=== PATIENT | female | born 1990 | race American Indian/Alaskan Native ===

== ENCOUNTER 2018-11-23 07:08 | Emergency (ER) | payer OTHER ==
--- NOTE | 2018-11-23 08:30 | Emergency Department Report ---
HPI - General Chief Complaint: Rectal Pain Time Seen by Provider: 11/23/18 08:13 - HPI HPI: 27-year-old female presents to the emergency department with a complaint of some rectal pain with some type of lump or lesion. She says that the pain started about one week ago and then she started to feel some type of localized area of discomfort about 3-4 days ago. She says that she feels like it is "under the skin." She has tried bathing in Epsom salt, using a salve, some type of pain numbing spray, and multiple other [id number] medications without any relief. She otherwise denies any past medical history. She is able to have bowel movements but it is painful to do so. ED Past Medical Hx - Social History Smoking Status: Never Smoker Substance Use Type: None - Medications Home Medications: Home Medications Medication Instructions Recorded Confirmed Last Taken Type Amoxicillin/Potassium Clav 1 each PO BID #14 tablet 11/23/18 Unknown Rx [Augmentin 875-125 Tablet] ED Review of Systems ROS: Stated complaint: LUMP ON ANAL AREA Other details as noted in HPI Comment: All other systems reviewed and negative Constitutional: denies: chills, fever Eyes: denies: eye pain, vision change ENT: denies: ear pain, throat pain Respiratory: denies: cough, shortness of breath Cardiovascular: denies: chest pain, palpitations Gastrointestinal: other (rectal pain). denies: abdominal pain, vomiting Genitourinary: denies: dysuria, discharge Musculoskeletal: denies: back pain, arthralgia Skin: denies: rash, lesions Neurological: denies: headache, weakness Physical Exam - Physical Exam Vital Signs: Vital Signs 11/23/18 07:12 Temperature 98.1 F Pulse Rate 98 H Respiratory 16 Rate Blood Pressure 132/87 [Right] O2 Sat by Pulse 98 Oximetry Physical Exam: GENERAL: The patient is well-developed well-nourished. HEENT: Normocephalic. Atraumatic. Patient has moist mucous membranes. EYES: Extraocular motions are intact. NECK: Supple. Trachea is midline. CHEST/LUNGS: Clear to auscultation. There is no respiratory distress noted. HEART/CARDIOVASCULAR: Regular. There is no tachycardia. There is no obvious murmur. ABDOMEN: There is no abdominal distention. SKIN: There is some swelling and fluctuance to the perianal area around the 6 o'clock position that appears consistent with an abscess and is tender to palpation. Otherwise no visible hemorrhoids or lesions. NEURO: The patient is awake, alert, and oriented. The patient is cooperative. The patient has no focal neurologic deficits. The patient has normal speech. MUSCULOSKELETAL: There is no tenderness or deformity. There is no limitation range of motion. There is no evidence of acute injury. 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 - I & D Rectum Type of Procedure: Simple Site: perianal abscess about 6 o'clock position Blade Size: 11 I & D Procedure: betadine prep, sterile drapes applied, sterile dressing applied Progress: Area was cleaned with iodine/Betadine. About 2-3 mL of 1% lidocaine without epinephrine was injected into the abscess. An 11 blade scalpel was used to make a 1.5 cm incision. There was a return of about 4 mL of pus. The area was covered with sterile gauze and pressure held for any cessation of bleeding. Total estimated loss of blood is less than 5 mL. Patient tolerated the procedure well. No obvious complications. ED Medical Decision Making - Medical Decision Making She presents with complaint of some pain and swelling around her rectum appears to have a perianal abscess. An incision and drainage was done successfully got a return of about 4-5 mL of purulence and the patient has significant relief. Due to its location near the rectum, the patient will be placed on antibiotics as well despite the I&D. She will follow up with the primary care physician and return to the ER with any worsening of her symptoms or any acute distress. - Differential Diagnosis perianal abscess, perirectal abscess, hemorrhoids, malignancy Critical Care Time: No Critical care attestation.: If time is entered above; I have spent that time in minutes in the direct care of this critically ill patient, excluding procedure time. ED Disposition Clinical Impression: Perianal abscess Disposition: - TO HOME OR SELFCARE Is pt being admited?: No Condition: Stable Instructions: Abscess Incision and Drainage (ED), Anorectal Abscess and Anal Fistula (ED), Abscess (ED) Additional Instructions: Take the antibiotics as prescribed. You should continue to use warm compresses or soak in a warm bath to try and express further infection, if there is any. Return to the emergency Department with any worsening of your symptoms or any acute distress. Prescriptions: Amoxicillin/Potassium Clav [Augmentin 875-125 Tablet] 1 each PO BID #14 tablet Referrals: [facility] [Outside] - 2-3 Days Time of Disposition: 10:08
[2018-11-23] MEDS ORDERED: XYLOCAINE 1% MPF 5 mL INFILTRATI ONE (09:03)
[2018-11-23] MEDS ORDERED: BACTRIM DS PO ONE (09:03)
[2018-11-23] MEDS ORDERED: NORCO 5/325 PO ONE (09:03)
[2018-11-23 10:39] VITALS: BP 128/77
== END 2018-11-23 10:37 | disposition home or self-care (01) ==
LOC: ED 07:08
DX: K61.0 Anal abscess (principal)
CPT/HCPCS: 99282